=== PATIENT | female | born 1945 | race Caucasian/White ===

== ENCOUNTER 2023-06-22 13:37 | Emergency (ER) | payer MEDICARE, OTHER ==
[~2023-06-22] VITALS: Ht 162.6 cm; Wt 79.4 kg
[2023-06-22 14:19] VITALS: BP 141/82
[2023-06-22] MEDS ORDERED: ELIQUIS5 MG PO (14:25)
== END 2023-06-22 15:08 | disposition home or self-care (01) ==
LOC: ER 13:37
DX: Z76.0 Encounter for issue of repeat prescription (principal); Z79.01 Long term (current) use of anticoagulants; Z91.030 Bee allergy status; Z91.011 Allergy to milk products; Z91.013 Allergy to seafood; Z88.6 Allergy status to analgesic agent; Z88.8 Allergy status to other drugs, medicaments and biological substances; Z91.02 Food additives allergy status; Z86.73 Personal history of transient ischemic attack (TIA), and cerebral infarction without residual deficits
CPT/HCPCS: 99281

== ENCOUNTER 2023-07-11 12:09 | Observation (INO) | payer MEDICARE, OTHER ==
[~2023-07-11] VITALS: Ht 162.6 cm; Wt 83.8 kg
[~2023-07-11 12:09] MED LIST: ELIQUIS5 MG PO
[2023-07-11] MEDS ORDERED: LISI5 PO (12:43)
[2023-07-11 12:44] LABS: BASOPHILS ABSOLUTE AUTO 0.07 K/mm3 (0.00-0.23); BASOPHILS PERCENT AUTO 1 % (0-2); EOSINOPHILS ABSOLUTE AUTO 0.11 K/mm3 (0.00-0.68); EOSINOPHILS PERCENT AUTO 1 % (0-6); Hematocrit 41.6 % (33.0-51.0); Hemoglobin 13.8 g/dL (11.5-16.0); IMMATURE GRAN ABSOLUTE AUTO 0.03 K/mm3 (0.00-0.10); IMMATURE GRAN PERCENT AUTO 0 % (0-1); LYMPHOCYTES ABSOLUTE AUTO 1.44 K/mm3 (0.84-5.20); LYMPHOCYTES PERCENT AUTO 17 % (21-46); MONOCYTES ABSOLUTE AUTO 0.64 K/mm3 (0.16-1.47); MONOCYTES PERCENT AUTO 7 % (4-13); Mean Corpuscular HGB 29.6 pg (26.0-34.0); Mean Corpuscular HGB Conc 33.2 g/dL (31.5-36.5); Mean Corpuscular Volume 89 fL (80-100); Mean Platelet Volume 8.3 fL (9.1-12.4); NEUTROPHILS ABSOLUTE AUTO 6.35 K/mm3 (1.96-9.15); NEUTROPHILS PERCENT AUTO 74 % (41-73); Platelet Count 325 K/mm3 (150-400); RDW Coefficient Variation 13.2 % (11.7-14.2); RDW Standard Deviation 43.1 fL (35.1-46.3); Red Blood Cell Count 4.66 M/mm3 (3.80-5.20); White Blood Cell Count 8.64 K/mm3 (4.00-11.30)
[2023-07-11 13:06] LABS: Albumin, Blood 3.6 g/dL (3.4-5.0); Bilirubin, Total 0.4 mg/dL (0.1-1.0); Bun/Creatinine Ratio 14.5 (12.0-20.0); Calcium, Blood 8.8 mg/dL (8.5-10.1); Creatinine, Blood 0.83 mg/dL (0.40-1.00); Globulin, Blood 3.6 g/dL (2.2-4.0); Total Protein, Blood 7.2 g/dL (6.4-8.2)
--- NOTE | 2023-07-11 17:46 | NUR ---
RN TRIED CALLING FOR REPORT AT [id number]. SHELVER BUSY. SHELVER TO CALL THIS RN BACK ON [facility].
[2023-07-11 18:33] VITALS: BP 138/81
--- NOTE | 2023-07-11 18:43 | NUR ---
1826- PT ARRIVED TO MEDICAL FLOOR FROM ER IN STABLE CONDITION. PT REFUSED X2 RN SKIN CHECK, BUT DID INFORM STAFF SHE, "HAS NO OPEN SORES OR WOUNDS WHATSOEVER." RN ATTEMPTED TO STRIGHT CATH PT PER ORDER, BUT PT POLITELY REFUSED AND STATED, "I AM PERFECTLY CAPABLE OF PEEING MYSELF FOR A SAMPLE THANK YOU." RN TO CHANGE ORDER FOR UA.
[2023-07-11 19:45] VITALS: BP 134/70
[2023-07-11 21:37] LABS: Source, Urine Clean Catch
[2023-07-11 21:42] LABS: Bilirubin, Urine Neg (Neg); Blood, Urine Neg (Neg); Glucose Qualitative, Urine Neg (Neg); Ketones, Urine Neg (Neg); Leukocyte Esterase, Urine 1+ (Neg); Nitrite, Urine Neg (Neg); Protein, Urine 1+ (Neg); Specific Gravity, Urine 1.015 (1.003-1.022); Urobilinogen, Urine NORM (Normal)
[2023-07-11 21:47] LABS: Appearance, Urine Clear (Clear); Color, Urine Yellow (P-Yellow)
[2023-07-11 21:48] LABS: Bacteria Few /hpf; Red Blood Cells, Urine 0-2 /hpf (0-2); Squamous Epithelial Cells Not Seen /hpf (Few)
--- NOTE | 2023-07-12 03:27 | NUR ---
SHIFT SUMMARY PT A&O X4, CALM AND COOPERATIVE WITH CARE. NO ACUTE EVENTS OVERNIGHT. TELEMETRY: SR @ 68. DENIES ANY CP OR PRESSURE. PT SBA TO BATHROOM. STRICT I's & O's MAINTAINED. BED KEPT IN LOWEST POSITION WITH CALL LIGHT WITHIN REACH. PT CALLS APPROPRAIETLY. WILL CONTINUE TO MONITOR.
[2023-07-12 04:43] VITALS: BP 114/65
[2023-07-12 07:19] VITALS: BP 112/50
--- NOTE | 2023-07-12 11:53 | NUR ---
PATIENT WAITING FOR LAST PART OF STRESS TEST TO BE DONE NPO EXCEPT ICE CHIPS, CALL LIGHT WITH IN PLACE, PLEASANT TO CARE
[2023-07-12 16:21] VITALS: BP 114/58
--- NOTE | 2023-07-12 17:35 | NUR ---
ALERT AND ORIENTED TO ALL, MAKES NEEDS KNOWN, ALL CARDIAC TESTS DONE, WAITING RESULTS, DENIES CP ALL DAY, TELE NSR, FAMILY AT BEDSIDE HELPFUL WITH CARE, SATS RA 95%, CALL LIGHT WITH IN REACH, NO ACUTE CHANGES, WILL RELAY TO PM RN
[2023-07-12 20:23] VITALS: BP 108/69
--- NOTE | 2023-07-13 03:27 | NUR ---
SHIFT SUMMARY PT A&O X4, CALM AND COOPERATIVE WITH CARE. ABLE TO MAKE NEEDS KNOWN. MEDICATED FOR WRIST PAIN PER EMAR. NO ACUTE CHANGES THIS SHIFT. TELEMETRY: SR @64. DENIES ANY CP OR PRESSURE. CARDIAC WORKUP COMPLETED. BED KEPT IN LOWEST POSITION WITH CALL LIGHT WITHIN REACH. WILL CONTINUE TO MONITOR UNTIL END OF SHIFT.
[2023-07-13 04:29] VITALS: BP 131/69
[2023-07-13 07:19] VITALS: BP 114/68
[2023-07-13] MEDS ORDERED: ATOR10 PO (13:06)
[2023-07-13] MEDS ORDERED: PANT40 PO (13:08)
[2023-07-13] MEDS ORDERED: CARV3.125 PO (13:08)
[2023-07-13] MEDS ORDERED: TROSPIUM CHLORI20 MG PO (13:09)
--- NOTE | 2023-07-13 13:39 | NUR ---
SHIFT/DISCHARGE SUMMARY Pt remains A&Ox4 this shift. Denies pain, VSS. Ambulates independently. Tolerating meals. All discharge instructions reviewed with return verbal understanding. Pt to lobby with granddaughter via transport chair.
== END 2023-07-13 13:30 | disposition home or self-care (01) ==
LOC: ER 12:09 → MEDS 12:10 → ENPENDDIS 07-13 10:11 → MEDS 07-13 13:30
PROVIDERS: Emergency Medicine; ADMIT Internal Medicine
DX: R07.89 Other chest pain (principal); E78.5 Hyperlipidemia, unspecified; I48.0 Paroxysmal atrial fibrillation; K21.9 Gastro-esophageal reflux disease without esophagitis; I11.0 Hypertensive heart disease with heart failure; I50.9 Heart failure, unspecified; Z79.899 Other long term (current) drug therapy; Z88.2 Allergy status to sulfonamides; Z88.8 Allergy status to other drugs, medicaments and biological substances
CPT/HCPCS: 71045; 78452; 80053; 81001; 84484; 85025; 87086; 93005; 93010; 93017; 93306; 99285-25; A9270; A9500; G0378; J0280; J2785

== ENCOUNTER → 2023-07-17 | Outpatient (CLI) | payer MEDICARE, OTHER ==
[~2023-07-17] MED LIST changes: +ATOR10 PO; +CARV3.125 PO; +LISI5 PO; +PANT40 PO; +TROSPIUM CHLORI20 MG PO
== END ==
LOC: LAB 11:20 → LAB SHORT 11:20
DX: R30.0 Dysuria (principal)
CPT/HCPCS: 87086

== ENCOUNTER 2024-04-14 14:05 | Emergency (ER) | payer OTHER ==
[~2024-04-14] VITALS: Ht 162.6 cm; Wt 88.0 kg
[2024-04-14 14:56] VITALS: BP 120/88
[2024-04-14] MEDS ORDERED: Nitrofurantoin/Nitrofuran Mac 100 MG Cap PO ONE (15:00)
[2024-04-14] MEDS ORDERED: Pyridium200 MG PO (15:02)
[2024-04-14] MEDS ORDERED: Macrobid 100 M100 MG PO (15:02)
== END 2024-04-14 15:43 | disposition home or self-care (01) ==
LOC: ER 14:05
DX: R30.0 Dysuria (principal); I11.0 Hypertensive heart disease with heart failure; I50.9 Heart failure, unspecified; E78.5 Hyperlipidemia, unspecified; I48.0 Paroxysmal atrial fibrillation; Z88.8 Allergy status to other drugs, medicaments and biological substances; Z88.2 Allergy status to sulfonamides; Z88.6 Allergy status to analgesic agent; Z91.030 Bee allergy status; Z91.013 Allergy to seafood; Z79.899 Other long term (current) drug therapy; Z79.01 Long term (current) use of anticoagulants
CPT/HCPCS: 99282; A9270

== ENCOUNTER → 2024-04-17 | Outpatient (CLI) | payer OTHER ==
[~2024-04-17] MED LIST changes: +Macrobid 100 M100 MG PO; +Pyridium200 MG PO
== END ==
LOC: LAB SHORT 15:39 → LAB 15:39
DX: N39.0 Urinary tract infection, site not specified (principal)
CPT/HCPCS: 87086